=== PATIENT | male | born 1945 | race Caucasian/White ===

== ENCOUNTER 2022-12-04 12:23 | Emergency (ER) | payer OTHER ==
[~2022-12-04] VITALS: Ht 180.3 cm; Wt 88.5 kg
[2022-12-04] MEDS ORDERED: LEVOXYL25 MCG PO (13:14)
[2022-12-04] MEDS ORDERED: LEVOBUNOLOL HCL5 ML OP (13:14)
[2022-12-04] MEDS ORDERED: CARVEDILOL ER40 MG PO (13:15)
[2022-12-04] MEDS ORDERED: ALTACE2.5 MG PO (13:15)
[2022-12-04] MEDS ORDERED: ATORVASTATIN CA10 MG PO (13:16)
[2022-12-04] MEDS ORDERED: MEGARED OMEGA-1 EAC2 PO (13:16)
== END 2022-12-04 20:43 | disposition home or self-care (01) ==
LOC: ER 12:23
PROVIDERS: Emergency Medicine
DX: U07.1 COVID-19 (principal); R05.9 Cough, unspecified
CPT/HCPCS: 36415; 71046; 94640; 99283; J2930